=== PATIENT | male | born 1980 | race Caucasian/White ===

== ENCOUNTER → 2016-06-16 | Outpatient (CLI) | payer OTHER ==
[~2016-06-16] MED LIST: ATIVAN 1MG T1 MG/TAB PO; CLINDAMYCIN HC150 MG PO; FLEXERIL10 MG PO; IBIFON 600600 MG PO; LEVOTHROID0.125 MG PO; LEVOXYL0.125 MG PO; LORTAB 5/500 501 TAB PO; MOTRIN 800800 MG/TAB PO; NORCO 325 MG-51 TAB PO; PERCOCET 5/321 UDTAB PO
== END ==
LOC: ZLAB.FHCC 17:34
DX: Z01.89 Encounter for other specified special examinations (principal)

== ENCOUNTER 2017-01-22 21:40 | Emergency (ER) | payer SELFPAY ==
[~2017-01-22] VITALS: Ht 165.1 cm; Wt 67.7 kg
[2017-01-22 21:43] VITALS: TEMP 100.4
[2017-01-22] MEDS ORDERED: NORCO 325 MG-51 TAB PO (22:15)
[2017-01-22] MEDS ORDERED: DOXYCYCLINE 10100 MG PO (23:47)
[2017-01-22 23:52] VITALS: BP 118/77; PULSE 86
== END 2017-01-22 23:53 | disposition home or self-care (01) ==
LOC: COL.ER 21:40
DX: L02.413 Cutaneous abscess of right upper limb (principal)
CPT/HCPCS: J1170; J1885

== ENCOUNTER 2018-02-18 23:28 | Emergency (ER) | payer SELFPAY ==
[~2018-02-18] VITALS: Ht 165.1 cm; Wt 67.7 kg
[~2018-02-18 23:28] MED LIST changes: +DOXYCYCLINE 10100 MG PO
[2018-02-18 23:32] VITALS: TEMP 97.7
[2018-02-19 00:18] VITALS: BP 132/72; PULSE 78
== END 2018-02-19 00:18 | disposition home or self-care (01) ==
LOC: COL.ER 23:28
DX: K40.90 Unilateral inguinal hernia, without obstruction or gangrene, not specified as recurrent (principal); F41.9 Anxiety disorder, unspecified; F17.210 Nicotine dependence, cigarettes, uncomplicated; Z88.0 Allergy status to penicillin

== ENCOUNTER 2018-06-20 16:52 | Emergency (ER) | payer SELFPAY ==
[~2018-06-20] VITALS: Ht 165.1 cm; Wt 66.8 kg
[2018-06-20 17:00] VITALS: BP 122/67; PULSE 76; TEMP 97.9
[2018-06-20] MEDS ORDERED: LEVOXYL0.125 MG PO (17:16)
== END 2018-06-20 17:37 | disposition home or self-care (01) ==
LOC: COL.ER 16:52
DX: E03.9 Hypothyroidism, unspecified (principal)

== ENCOUNTER 2018-08-25 23:08 | Emergency (ER) | payer SELFPAY ==
[~2018-08-25] VITALS: Ht 165.1 cm; Wt 61.4 kg
[2018-08-25 23:22] VITALS: TEMP 98
[2018-08-26 00:02] LABS: BASO # 0.1 (0.0-0.2); BASO % 0.9 % (0.0-2.0); EOS # 0.1 (0.0-0.7); EOS % 1.9 % (0-4.0); GRAN % 50.7 % (42.2-75.2); HEMATOCRIT 39.8 % (42.0-52.0); HEMOGLOBIN 13.7 g/dl (13.5-18.0); LYMPH # 2.2 (1.2-3.4); LYMPH % 38.4 % (20.0-51.0); MEAN CELL VOLUME 83 fl (80.0-100.0); MEAN CORPUSCULAR HEMOGLOBIN 29 pg (27.0-31.0); MEAN CORPUSCULAR HGB CONC 34 g/dl (33.0-37.0); MEAN PLATELET VOLUME 8.5 fl (7.4-10.4); MONO # 0.5 (0.1-0.6); MONO % 7.9 % (1.7-9.3); PLATELET COUNT 326 K/mm3 (130-400); RED BLOOD COUNT 4.77 M/mm3 (4.20-5.60); REDCELL DISTRIBUTION WIDTH-CV 12.8 % (11.5-14.5)
[2018-08-26 00:08] LABS: ALANINE AMINOTRANSFERASE 28 U/L (21-72); ALBUMIN 4.4 gm/dL (3.5-5.0); ALKALINE PHOSPHATASE 104 U/L (50-136); ANION GAP 11 mmol/L (7-16); AST,SGOT 33 U/L (15-37); BILIRUBIN,TOTAL 0.4 mg/dL (0.0-1.0); BLOOD UREA NITROGEN 16 mg/dL (9-20); CALCIUM 9.5 mg/dL (8.4-10.2); CARBON DIOXIDE 30 mmol/L (22-30); CHLORIDE 103 mmol/L (98-107); CREATININE, serum 1.08 (0.66-1.25); GLUCOSE 94 mg/dL (74-106); POTASSIUM 3.5 mmol/L (3.4-5.0); SODIUM 144 mmol/L (137-145); TOTAL PROTEIN 8.2 gm/dL (6.4-8.2)
[2018-08-26 00:32] LABS: TROPONIN-I < 0.012 ng/mL (0.000-0.035)
[2018-08-26] MEDS ORDERED: LEVOXYL0.125 MG PO (01:38)
[2018-08-26 01:46] VITALS: BP 119/74; PULSE 90
== END 2018-08-26 01:46 | disposition home or self-care (01) ==
LOC: COL.ER 23:08
PROVIDERS: Physician Assistant
DX: E03.9 Hypothyroidism, unspecified (principal); Z76.0 Encounter for issue of repeat prescription; Z98.890 Other specified postprocedural states

== ENCOUNTER 2018-11-02 17:27 | Emergency (ER) | payer SELFPAY ==
[~2018-11-02] VITALS: Ht 165.1 cm; Wt 67.7 kg
[2018-11-02 17:37] VITALS: BP 109/57; TEMP 97.8
[2018-11-02] MEDS ORDERED: LEVOXYL0.125 MG PO (17:46)
[2018-11-02 17:48] VITALS: PULSE 84
== END 2018-11-02 17:56 | disposition home or self-care (01) ==
LOC: COL.ER 17:27
DX: Z76.0 Encounter for issue of repeat prescription (principal); F17.210 Nicotine dependence, cigarettes, uncomplicated; Z88.0 Allergy status to penicillin